=== PATIENT | female | born 1970 | race Two or more races ===

== ENCOUNTER → 2017-04-22 | Outpatient (CLI) | payer BC, OTHER ==
--- NOTE | 2017-04-22 23:36 | ECWPNPC ---
PATIENT NAME: KARSTEN WERNER : 1970 GENDER: FEMALE VISIT DATE: 04/22/2017 DISCHARGE DATE: 04/22/17 1431 VISIT LOCKED DATE TIME: PHYSICIAN: VY NOLAND RESOURCE: VY NOLAND HISTORY OF PRESENT ILLNESS NEW PATIENT CONSULT: WHEN DID YOUR PAIN FIRST START? . BRIEFLY DESCRIBE HOW YOUR PAIN STARTED? . HOW DOES YOUR PAIN CHANGE WITH TIME? . DOES YOUR PAIN AWAKEN YOU FROM SLEEP? . HOW MANY HOURS OF SLEEP DO YOU NORMALLY GET? . ANY DIAGNOSTIC TESTING? . FACILITY WHERE TESTS WERE DONE? ____. PAIN TREATMENT TREATMENT YES CANCER HAVE YOU EVER HAD ANY TYPE OF CANCER?NO NO. PAIN SCREENING: PATIENT HAS A COMPLAINT OF ACUTE OR CHRONIC PAIN :YES FALL RISK SCREENING: SCREENING :NO FALLS IN THE PAST YEAR OMRAN INVENTORY: QUESTIONNAIRE ASSESSEDYES SCORE VALUE CALCULATED YES SCORE: 8/63 DENIES SUICIDAL OR HOMICIDAL IDEATION TODAY'S VISIT: NOTES: NEW PATIENT REFERRAL TODAY FROM FRANCISCO PLUMMER MD , [place], [place], FOR CHRONIC JOINT PAIN. PER PROVIDERS NOTES HAS HISTORY OF RHEUMATOID ARTHRITIS AND LYME DISEASE. PER PATIENT HAS HX OF SJORGENS SYNDROME. IS STILL WAITING TO BE SEEN BY RHEUMATOLOGY IN [facility]. PREVIOUSLY HAS SEEN [facility] RHEUMATOLOGY . TRAMADOL AT 3 TABS PER DAY ALLOW HER TO FUNCTION. REPORTS ONSET OF SEVERE SYMPTOMS IN 2011 WITH NERVE PAIN, RANDOM JOINT SWELLING, SKIN ERUPTIONS, HIVES, EYE IRITATION, SHOULDER PAIN. CURRENTLY WORST AREAS IN UPPER LIMBS. HAS BEEN ON PREDNISONE AT 10 MG DAILY SEVERAL YEARS WHICH HELPS KEEP THINGS STABLE. HAS TRIAL WEAN OF PREDNISONE WITH MARKED RETURN OF SYMPTOMS. HAS BEEN TRIALED ON PLAQUENIL - BAD REACTION, AND HASN'T TRIALED METHOTREXATE YET SHE IS CONCERNED ABOUT POTENTIAL ADVERSE EFFECTS. HAS NOT BEEN CONSIDERED FOR ANY OTHER MEDICATIONS FOR SYMPTOM SUPPRESSION YET. . HAS HAD NO MAJOR FLARES IN LAST YEAR. HEAT CAN HELP WITH JOINT PAIN. . RATES PAIN TODAY 5/10. DESCRIBES PAIN CONSTANT AND TODAY EFFECTING JOINTS OF BOTH HANDS AND LEFT ARM. . CURRENT MEDICATIONS TAKING ARMOUR THYROID 30 MG TABLET TAKE ONE TABLET BY MOUTH EVERY DAY ORAL TAKING FLUCONAZOLE 100 MG TABLET TAKE 1 TABLET BY MOUTH TWICE A WEEK FOR 4 WEEKS ORAL TAKING LISINOPRIL 10 MG TABLET TAKE ONE TABLET BY MOUTH EVERY DAY ORAL TAKING PREDNISONE 10 MG TABLET TAKE ONE TABLET BY MOUTH EVERY DAY ORAL TAKING TRAMADOL HCL 50 MG TABLET (SCHEDULE IV DRUG) TAKE ONE TABLET BY MOUTH THREE TIMES A DAY NEEDED MAXIMUM DAILY DOSE 3 ORAL MEDICATION LIST REVIEWED AND RECONCILED WITH THE PATIENT PAST MEDICAL HISTORY AUTOIMMUNE DISORDER HTN VERTIGO 2007 BURSITIS 2010 HYPOTHYROID PAST HX LYME / LUPUS /RA / SJORGENS DRY EYES ALLERGIES GLUTEN / WHEAT: AUTOIMMUNE DX MILK: AUTOIMMUNE DX NAPROSYN: SKIN REACTION EXCEDRIN EXTRA STRENGTH: SKIN RXN PLAQUENIL: HIVES, WELTS NSAIDS: SKIN REACTION SURGICAL HISTORY HYSTERECTOMY 2017 APPENDECTOMY AGE 11 TUBAL LIGATION WISDOM TEETH REMOVAL FAMILY HISTORY FATHER: 51 YRS, DIAGNOSED WITH HEART DISEASE MOTHER: ALIVE, DIAGNOSED WITH HYPERTENSION, HEART DISEASE SOCIAL HISTORY GENERAL: TOBACCO USE ARE YOU A:NONSMOKER FORMER SMOKER. QUIT SMOKING YEARS AGO ALCOHOL SCREENING POINTS0 INTERPRETATIONNEGATIVE RECREATIONAL DRUG USE DRUG USE?NO DIET: FOLLOWS AUTOIMMUNE DIET. BUDDHIST [id number] CONFUCIANISM LANGUAGE LANGUAGES SPOKEN:GUATEMALAN LEARNING BARRIERS / SPECIAL NEEDS BARRIERS TO LEARNING?NO HEARING IMPAIRED?NO VISION IMPAIRED?NO COGNITIVELY IMPAIRED?NO READINESS TO LEARN?YES LEARNING PREFERENCES?NO EMOTIONAL BARRIERS?NO SPECIAL DEVICES?NO PAIN CLINIC PFS, CLERGY, PUBLIC HEALTH REFERRALS PFS REFERRAL NEEDED?NO CLERGY REFERRAL NEEDED?NO PUBLIC HEALTH REFERRAL NEEDED?NO WAS THE PROVIDER NOTIFIED OF ANY PERTINENT INFO?NO HAS THE PATIENT BEEN EDUCATED REGARDING HIS/HER PLAN OF CARE?YES HAS THE PATIENT BEEN EDUCATED REGARDING PAIN, THE RISK FOR PAIN, THE IMPORTANCE OF EFFECTIVE PAIN MANAGEMENT, AND THE PAIN ASSESSMENT PROCESS?YES PATIENT: ____. ADVANCE DIRECTIVES HEALTH CARE PROXY?NO WOULD YOU LIKE MORE INFORMATION?NO HOSPITALIZATION/MAJOR DIAGNOSTIC PROCEDURE VERTIGO 2007 HYSTERECTY 2017 2 CHILDREN APPENDECTOMY REVIEW OF SYSTEMS CONSTITUTIONAL: ANY CHANGE IN YOUR MEDICAL CONDITION? NO . CHILLS NO . FEVER NO . INFECTION: DO YOU HAVE NEW INFECTIONS? NO . DO YOU HAVE HISTORY OF MRSA? NO . MUSCULOSKELETAL: ANY NEW PATTERNS OF PAIN OR NUMBNESS? NO . SYTEMIC LUPUS NO . GASTROENTEROLOGY: GENERAL HX SJORGENS - DRY MOUTH. CONSTIPATION RESOLVING POST HYSTER . ANY NEW CHANGE IN BOWEL CONTROL? NO . BARRETTS ESOPHAGUS NO . CIRRHOSIS NO . HEPATITIS NO . LIVER FAILURE NO . ACID REFLUX NO . UNEXPLAINED WEIGHT LOSS NO . GENITOURINARY: ANY NEW CHANGE IN BLADDER CONTROL? NO . IS THERE A CHANCE YOU COULD BE ? NO . HEMATOLOGY/LYMPH: DO YOU TAKE ANY BLOOD THINNERS? (FOR EXAMPLE- COUMADIN, PLAVIX, AGGRENOX, PLATEL, PRADAXA, OR XARELTO) NO . WHEN WAS YOUR LAST DOSE? DATE: TIME: . LOW PLATELET COUNT NO . SICKLE CELL DISEASE NO . VON WILLIEBRANDS NO . FACTOR V LEIDEN NO . THALLASEMIA NO . ANEMIA NO . EASY BRUISING NO . NEUROLOGY: HAVE YOU FALLEN IN THE PAST 6 MONTHS? NO . ANY NEW EXTREMITY NUMBNESS OR WEAKNESS? NO . HEAD INJURY NO . DEMENTIA NO . CEREBRAL PALSY NO . MULTIPLE SCLEROSIS NO . DIZZINESS YES . HEADACHE MIGRAINES - FOLLOWS WITH BARBARA WILLIAMSON . STROKES NO . VERTIGO NO . CARDIOLOGY: DO YOU HAVE A PACEMAKER OR DEFIBRILLATOR? NO . ANGINA NO . HEART ATTACK NO . HEART SURGERY NO . CONGESTIVE HEART FAILURE/FLUID OVERLOAD NO . CHEST PAIN NO . HIGH BLOOD PRESSURE YES - NEW ONSET . IRREGULAR HEART BEAT NO . RESPIRATORY: HAVE YOU BEEN SICK IN THE PAST WEEK? NO . FEVER NO . FLU LIKE SYMPTOMS? NO . CPAP NO . BYPAP NO . ASTHMA NO . EMPHYSEMA NO . CHRONIC LUNG DISEASES NO . SHORTNESS OF BREATH ON EXERTION NO . DO YOU USE ANY TYPE OF TOBACCO (SMOKE, SMOKELESS, CHEW)? NO . COUGH NO . SNORING HAS BEEN TOLD SHE SNORES . INTEGUMENTARY: DO YOU HAVE ANY RASHES OR OPEN SORES? NO . ALLERGIC/IMMUNO: ARE YOU ALLERGIC TO SHELLFISH OR IV DYE? NO . ANY NEW ALLERGIES? NO . PSYCHIATRIC: DO YOU HAVE THOUGHTS OF HURTING YOURSELF OR SOMEONE ELSE? NO . ARE YOU ABUSED, NEGLECTED, OR IN AN UNSAFE ENVIRONMENT? NO . ENDOCRINOLOGY: ARE YOU DIABETIC? NO . THYROID DISORDER HYPOTHYROID - ON AURMORTHYROID . OTHER: DO YOU NEED ANY PRESCRIPTIONS? NO . IF YES, PLEASE LIST: ____ . ANY NEW PROBLEMS WITH YOUR MEDICATIONS? NO . WHEN DID YOU LAST EAT? ____ . WHEN DID YOU LAST DRINK? ____ . WHAT DID YOU LAST DRINK? ____ . NAME OF PERSON DRIVING YOU HOME? ____ . DO YOU HAVE ANY OTHER QUESTIONS OR CONCERNS NO . REVIEWED BY: PROVIDER: VY GANNP . VITAL SIGNS WT 111.4 LBS, HT 62 IN, BMI 20.37 INDEX, BP 133/81 MM HG, HR 65 /MIN, RR 16 /MIN, TEMP 98.8 F, OXYGEN SAT % 100%, NA INITIALS SC 13:23, REVIEWED BY: NL. EXAMINATION GENERAL EXAMINATION: GENERAL APPEARANCE:WELL DRESSED, THIN. PSYCHALERT , ORIENTED X 3 , APPROPRIATE MOOD AND AFFECT , SPEACH VERY QUIET. HEENT:NORMOCEPHALIC, NO LYMPHADENOPATHY, NO THYROMEGLY. SOME PERIORBITAL EDEMA. NO SCLERAL OR CONJUNTIVAL ERRYTHEMA. ORAL CAVITY:MOIST MUCOUS MEMBRANES, NO LESIONS. LUNGS:CLEAR TO AUSCULTATION BILATERALLY, NO WHEEZES, RALES OR RHONCHI. HEART:HEART RATE REGULAR, NO MURMURS, CLICK OR RUBS, NORMAL S1S2, NO CAROTID BRUITS. MUSCULOSKELETAL:MUSCLE STRENGTH TESTING 5/5 BILATERAL UPPER AND LOWER EXTREMITIES. FEW TRIGGER POINTS IDENTIFIED OVER LEFT DELTOID AND SCAPULA. MIN TENDERNESS WITH PALPATION OOVER CERVICAL , THORACIC OR LUMBAR SPINOUS PROCESSES. RISES EASILY TO STANDING POSITION, POSTURE UPRIGHT. GAIT NONANTALGIC.. EXTREMITIES:NO EDEMA. JOINTS:TENDERNESS AND EDEMA OVER THE RIGHT AND LEFT 3RD DIGIT AT THE MIP JOINTS. TENDER OVER 1 METACARPALS BILATERALLY. NO TMJ TENDERNESS OR CLICK. ABLE TO FULLY OPEN MOUTH. NEUROLOGIC EXAM:CN'S II-XII GROSSLY INTACT. EOMS INTACT WITHOUT NYSTAGMUS. SPEACH NON DYSARTHRIC. DTR'S 3+ BILATERAL UPPER EXTREMITIES, 4+ WITH CLONUS BILATER LOWER EXTREMITIES. NO SENSORY DEFICEIT. ASSESSMENTS RHEUMATOID ARTHRITIS INVOLVING MULTIPLE SITES WITH POSITIVE RHEUMATOID FACTOR - M05.79 (PRIMARY) ARTHRALGIA, UNSPECIFIED JOINT - M25.50 TREATMENT RHEUMATOID ARTHRITIS INVOLVING MULTIPLE SITES WITH POSITIVE RHEUMATOID FACTOR REFILL TRAMADOL HCL TABLET, 50 MG, 1 TAB, ORAL, Q 6-8 HOURS PRN PAIN MDD=3, 30 DAYS, 90, REFILLS 1 NOTES: CONTINUE CURRENT MEDS. WILL BE CALLING DR PLUMMER SHOULD THERE BE ANY FLARES WITH THE AUTO IMMUNE DISORDER WHICH NEED ATTENTION. WE CAN CONTINUE TO FOLLOW FOR PAIN AND WILL CONTINUE WITH TRAMADOL AT MAX 3 TABS PER DAY. CLINICAL NOTES: ISTOP REGISTRY REVIEWED AND DEMNOSTRATES COMPLLIANCE. , RISKS AND BENEFITS OF NARCOTIC/OPIOD MEDICATIONS WERE REVIEWED WITH PATIENT - THIS INCLUDES BUT IS NOT LIMITED TO RISK OF DEPENDANCE/DEVELOPMENT OF ADDICTION, MOOD DISTURBANCE AND DEPRESSION, OSTEOPOROSIS, HORMONAL AND LABIDAL CHANGES, RESPIRATORY DEPRESSION AND . PATIENT IS ADVISED NOT TO DRIVE WHILE ON THESE MEDICATIONS. PROCEDURE CODES FA211 ESTABILISHED PATIENT [facility] FACILITY CHARGE DISPOSITION & COMMUNICATION FOLLOW UP 6 WEEKS (REASON: JOINT PAIN) ELECTRONICALLY SIGNED BY LYLA MULLINS ON 04/22/2017 AT 04:51 PM EDT DISCLAIMER : THIS IS A VISIT SUMMARY EXTRACTED FROM THE [employer] CHART. IT IS NOT A COPY OF THE [employer] PROGRESS NOTE. MTDD
== END ==
LOC: M PAIN 13:20
PROVIDERS: ATTEND Nurse Practitioner Family
DX: M05.79 Rheumatoid arthritis with rheumatoid factor of multiple sites without organ or systems involvement (principal); M25.50 Pain in unspecified joint; G89.29 Other chronic pain; Z79.891 Long term (current) use of opiate analgesic; Z79.899 Other long term (current) drug therapy; Z87.891 Personal history of nicotine dependence

== ENCOUNTER → 2017-06-21 | Outpatient (CLI) | payer BC, OTHER ==
--- NOTE | 2017-07-07 23:26 | ECWPNPC ---
PATIENT NAME: KARSTEN WERNER : 1970 GENDER: FEMALE VISIT DATE: 06/21/2017 DISCHARGE DATE: 06/21/17 1032 VISIT LOCKED DATE TIME: PHYSICIAN: VY NOLAND RESOURCE: VY NOLAND REASON FOR APPOINTMENT 1. AUTOIMMMUNE ARTHRITIS HISTORY OF PRESENT ILLNESS HISTORY OF PRESENT ILLNESS: PAIN THE PATIENT DESCRIBES THE PAIN... FALL RISK SCREENING: SCREENING :NO FALLS IN THE PAST YEAR TODAY'S VISIT: NOTES: RATES PAIN TODAY 4-5/10. RECENTLY SAW RHEUMATOLY IN [place]. HAD INJECTION OF STEROIDS AND WAS STARTED ON METHOTREXATE AND IS NOW HAVING HIVES ON TRUNK. JOINTS AT SHOULDERS WRISTS, AND VORIOUS FINGER JOINTS ARE RED, SWOLLEN AND VARY SORE. PAINMED MAKES PAIN MAGABLE. IS ABLE TO SLEEP.. CURRENT MEDICATIONS TAKING ARMOUR THYROID 30 MG TABLET TAKE ONE TABLET BY MOUTH EVERY DAY ORAL TAKING LISINOPRIL 10 MG TABLET TAKE ONE TABLET BY MOUTH EVERY DAY ORAL TAKING TRAMADOL HCL 50 MG TABLET 1 TAB ORAL Q 6-8 HOURS PRN PAIN MDD=3 TAKING METHOTREXATE 2.5 MG TABLET 4 TABS ORALLY ONCE WEEKLY TAKING FOLIC ACID 1 MG TABLET 1 TABLET ORALLY ONCE A DAY NOT-TAKING PREDNISONE 10 MG TABLET TAKE ONE TABLET BY MOUTH EVERY DAY ORAL DISCONTINUED FLUCONAZOLE 100 MG TABLET TAKE 1 TABLET BY MOUTH TWICE A WEEK FOR 4 WEEKS ORAL MEDICATION LIST REVIEWED AND RECONCILED WITH THE PATIENT PAST MEDICAL HISTORY AUTOIMMUNE DISORDER HTN VERTIGO 2007 BURSITIS 2010 HYPOTHYROID PAST HX LYME / LUPUS /RA / SJORGENS DRY EYES ALLERGIES GLUTEN / WHEAT: AUTOIMMUNE DX MILK: AUTOIMMUNE DX NAPROSYN: SKIN REACTION EXCEDRIN EXTRA STRENGTH: SKIN RXN PLAQUENIL: HIVES, WELTS NSAIDS: SKIN REACTION REVIEW OF SYSTEMS REVIEWED BY: PROVIDER: VY NOLAND ICE CREAM VENDOR . CONSTITUTIONAL: ANY CHANGE IN YOUR MEDICAL CONDITION? YES, STARTED TAKING METHOTREXATE AND NOW HAS HIVES AROUND HER TRUNK, IS GOING TO CALL DOCTOR WHO PERSCRIBED IT. . CHILLS NO . FEVER NO . INFECTION: DO YOU HAVE NEW INFECTIONS? NO . DO YOU HAVE HISTORY OF MRSA? NO . MUSCULOSKELETAL: ANY NEW PATTERNS OF PAIN OR NUMBNESS? NO . GASTROENTEROLOGY: ANY NEW CHANGE IN BOWEL CONTROL? NO . GENITOURINARY: ANY NEW CHANGE IN BLADDER CONTROL? NO . IS THERE A CHANCE YOU COULD BE ? NO . HEMATOLOGY/LYMPH: DO YOU TAKE ANY BLOOD THINNERS? (FOR EXAMPLE- COUMADIN, PLAVIX, AGGRENOX, PLATEL, PRADAXA, OR XARELTO) NO . WHEN WAS YOUR LAST DOSE? DATE: TIME: . NEUROLOGY: HAVE YOU FALLEN IN THE PAST 6 MONTHS? NO . ANY NEW EXTREMITY NUMBNESS OR WEAKNESS? NO . CARDIOLOGY: DO YOU HAVE A PACEMAKER OR DEFIBRILLATOR? NO . RESPIRATORY: HAVE YOU BEEN SICK IN THE PAST WEEK? NO . FEVER NO . FLU LIKE SYMPTOMS? NO . COUGH NO . INTEGUMENTARY: DO YOU HAVE ANY RASHES OR OPEN SORES? NO . ALLERGIC/IMMUNO: ARE YOU ALLERGIC TO SHELLFISH OR IV DYE? NO . ANY NEW ALLERGIES? NO . PSYCHIATRIC: DO YOU HAVE THOUGHTS OF HURTING YOURSELF OR SOMEONE ELSE? NO . ARE YOU ABUSED, NEGLECTED, OR IN AN UNSAFE ENVIRONMENT? NO . ENDOCRINOLOGY: ARE YOU DIABETIC? NO . OTHER: DO YOU NEED ANY PRESCRIPTIONS? YES . IF YES, PLEASE LIST: TRAMADOL . ANY NEW PROBLEMS WITH YOUR MEDICATIONS? NO . WHEN DID YOU LAST EAT? ____ . WHEN DID YOU LAST DRINK? ____ . WHAT DID YOU LAST DRINK? ____ . NAME OF PERSON DRIVING YOU HOME? ____ . DO YOU HAVE ANY OTHER QUESTIONS OR CONCERNS NO . VITAL SIGNS WT 112.4 LBS, HT 62 IN, BMI 20.56 INDEX, BP 135/93 MM HG, HR 72 /MIN, RR 16 /MIN, TEMP 98.5 F, OXYGEN SAT % 100%, NA INITIALS AW 0957, REVIEWED BY: YAMILET. EXAMINATION GENERAL EXAMINATION: GENERAL APPEARANCE:WELL DRESSED, THIN. PSYCHALERT , ORIENTED X 3 , APPROPRIATE MOOD AND AFFECT , SPEACH VERY QUIET. LUNGS:CLEAR TO AUSCULTATION BILATERALLY, NO WHEEZES, RALES OR RHONCHI. HEART:HEART RATE REGULAR, NO MURMURS, CLICK OR RUBS, NORMAL S1S2. MUSCULOSKELETAL:MUSCLE STRENGTH TESTING 5/5 BILATERAL UPPER AND LOWER EXTREMITIES. FEW TRIGGER POINTS IDENTIFIED OVER LEFT DELTOID AND SCAPULA. MIN TENDERNESS WITH PALPATION OOVER CERVICAL , THORACIC OR LUMBAR SPINOUS PROCESSES. RISES EASILY TO STANDING POSITION, POSTURE UPRIGHT. GAIT NONANTALGIC.. EXTREMITIES:NO EDEMA. JOINTS:TENDERNESS AND EDEMA OVER THE RIGHT AND LEFT 3RD DIGIT AT THE MIP JOINTS. TENDER OVER 1 METACARPALS BILATERALLY. NO TMJ TENDERNESS OR CLICK. ABLE TO FULLY OPEN MOUTH. SKIN:URTICARIA NOTED OVER TRUCK. NEUROLOGIC EXAM:CN'S II-XII GROSSLY INTACT. EOMS INTACT WITHOUT NYSTAGMUS.. ASSESSMENTS RHEUMATOID ARTHRITIS INVOLVING MULTIPLE SITES WITH POSITIVE RHEUMATOID FACTOR - M05.79 (PRIMARY) ARTHRALGIA, UNSPECIFIED JOINT - M25.50 TREATMENT RHEUMATOID ARTHRITIS INVOLVING MULTIPLE SITES WITH POSITIVE RHEUMATOID FACTOR REFILL TRAMADOL HCL TABLET, 50 MG, 1 TAB, ORAL, Q 6-8 HOURS PRN PAIN MDD=3, 30 DAYS, 90, REFILLS 3 NOTES: CAN TAKE TOTAL OF 3000 MG TYLENOL PER 24 HOURS.FOLLOW UP WITH RHEUMATOLOGY. PROCEDURE CODES FA211 ESTABILISHED PATIENT [facility] CHARGE DISPOSITION & COMMUNICATION FOLLOW UP 2 1/2- 3 MONTH (REASON: JOINT PAIN) ELECTRONICALLY SIGNED BY LYLA MULLINS ON 07/07/2017 AT 01:46 PM EDT DISCLAIMER : THIS IS A VISIT SUMMARY EXTRACTED FROM THE [employer] CHART. IT IS NOT A COPY OF THE [employer] PROGRESS NOTE. JESSICA
== END ==
LOC: M PAIN 09:30
PROVIDERS: ATTEND Nurse Practitioner Family
DX: M05.79 Rheumatoid arthritis with rheumatoid factor of multiple sites without organ or systems involvement (principal); M25.50 Pain in unspecified joint; I10 Essential (primary) hypertension; E03.9 Hypothyroidism, unspecified; Z79.891 Long term (current) use of opiate analgesic; Z79.899 Other long term (current) drug therapy; Z86.2 Personal history of diseases of the blood and blood-forming organs and certain disorders involving the immune mechanism; Z86.69 Personal history of other diseases of the nervous system and sense organs; Z91.011 Allergy to milk products; Z88.6 Allergy status to analgesic agent; Z88.8 Allergy status to other drugs, medicaments and biological substances

== ENCOUNTER → 2017-11-21 | Outpatient (CLI) | payer BC, OTHER | LOC: M PAIN 09:45 | DX: G89.29 Other chronic pain (principal); M05.79 Rheumatoid arthritis with rheumatoid factor of multiple sites without organ or systems involvement; M25.50 Pain in unspecified joint; I10 Essential (primary) hypertension; E03.9 Hypothyroidism, unspecified; H04.123 Dry eye syndrome of bilateral lacrimal glands; Z87.891 Personal history of nicotine dependence; Z91.018 Allergy to other foods; Z91.011 Allergy to milk products; Z88.6 Allergy status to analgesic agent; Z88.1 Allergy status to other antibiotic agents; Z88.8 Allergy status to other drugs, medicaments and biological substances | CPT/HCPCS: G0463 ==

== ENCOUNTER → 2018-02-19 | Outpatient (CLI) | payer OTHER | LOC: M PAIN 08:30 | DX: M05.79 Rheumatoid arthritis with rheumatoid factor of multiple sites without organ or systems involvement (principal); M79.601 Pain in right arm; M79.602 Pain in left arm; M25.542 Pain in joints of left hand; M25.541 Pain in joints of right hand; I10 Essential (primary) hypertension; M35.9 Systemic involvement of connective tissue, unspecified; E03.9 Hypothyroidism, unspecified; Z79.899 Other long term (current) drug therapy; E88.1 Lipodystrophy, not elsewhere classified; Z88.8 Allergy status to other drugs, medicaments and biological substances; Z91.018 Allergy to other foods; Z91.011 Allergy to milk products; Z87.891 Personal history of nicotine dependence; Z86.69 Personal history of other diseases of the nervous system and sense organs | CPT/HCPCS: G0463 ==

== ENCOUNTER 2019-11-24 10:37 | Emergency (ER) | payer BC, OTHER ==
[~2019-11-24] VITALS: Ht 160 cm; Wt 50.0 kg
[2019-11-24] MEDS ORDERED: RIZA10TA58 (11:32)
[2019-11-24] MEDS ORDERED: NP T30TA (11:32)
[2019-11-24] MEDS ORDERED: LISI10TA4 (11:32)
[2019-11-24] MEDS ORDERED: CYCL5TAB (11:32)
[2019-11-24] MEDS ORDERED: PRED1TABL (11:32)
--- NOTE | 2019-11-24 12:43 | REP ---
PA and lateral chest: There are no comparisons. The lung collier are clear. The cardiac size is normal. The radha, mediastinum, and skeletal structures are unremarkable. There is a tiny metallic density superimposed over the left hemithorax inferiorly/anteriorly, possibly a foreign body. Impression: Possible tiny foreign body on the left, otherwise, negative PA and lateral chest. Electronically Signed by Tom Mai MD 11/24/2019 12:35 P
[2019-11-24 13:02] LABS: BASO % 0.6 % (0.0-1.0); EOS # 0.1 10^3/uL (0.0-0.5); EOS % 1.3 % (0.0-3.0); HEMOGLOBIN 11.2 g/dl (12.0-15.5); LYMPH # 0.9 10^3/uL (1.5-5.0); MEAN CORPUSCULAR HEMOGLOBIN 26.4 pg (27.0-33.0); MEAN CORPUSCULAR HGB CONC 31.1 g/dl (32.0-36.5); MEAN CORPUSCULAR VOLUME 84.7 fl (80.0-96.0); MONO # 0.5 10^3/uL (0.0-0.8); NEUTROPHILS # 4.7 10^3/uL (1.5-8.5); NEUTROPHILS % 75.8 % (36.0-66.0); PLATELET COUNT, AUTOMATED 354 10^3/uL (150-450); RED BLOOD COUNT 4.25 10^6/uL (4.00-5.40); WHITE BLOOD COUNT 6.2 10^3/uL (4.0-10.0)
[2019-11-24 13:30] LABS: ALBUMIN 2.7 GM/DL (3.2-5.2); ALT/SGPT 15 U/L (12-78); BILIRUBIN,DIRECT 0.1 MG/DL (0.0-0.2); BILIRUBIN,TOTAL 0.2 MG/DL (0.2-1.0); BLOOD UREA NITROGEN 13 MG/DL (7-18); CALCIUM LEVEL 8.8 MG/DL (8.5-10.1); CARBON DIOXIDE LEVEL 27 MEQ/L (21-32); CHLORIDE LEVEL 106 MEQ/L (98-107); CK-MB VALUE MASS < 1.0 NG/ML (<3.6); CPK CREATINE PHOSPHOKINASE 40 U/L (26-192); CREATININE FOR GFR 0.45 MG/DL (0.55-1.30); FREE T4 1.88 NG/DL (0.76-1.46); GLOMERULAR FILTRATION RATE > 60.0 (>51); GLUCOSE, FASTING 98 MG/DL (70-100); LIPASE 54 U/L (73-393); POTASSIUM SERUM 4.2 MEQ/L (3.5-5.1); SODIUM LEVEL 140 MEQ/L (136-145); THYROID STIMULATING HORMONE < 0.005 uIU/ML (0.358-3.740); TOTAL PROTEIN 6.2 GM/DL (6.4-8.2); TROPONIN I < 0.02 NG/ML (< 0.10)
[2019-11-24] MEDS ORDERED: ACETAMINOPHEN TAB 650MG DOSE (2X325MG) PO ONE (14:00)
[2019-11-24 15:39] LABS: C REACTIVE PROTEIN QUANTITATIV 2.03 MG/DL (0.00-0.30)
[2019-11-24 16:03] LABS: CK-MB VALUE MASS < 1.0 NG/ML (<3.6); CPK CREATINE PHOSPHOKINASE 29 U/L (26-192); MB/CK RELATIVE INDEX 3.45 (< OR =4); TROPONIN I 0.02 NG/ML (< 0.10)
[2019-11-24] MEDS ORDERED: PROT1TAB2 PO (16:41)
[2019-11-24 16:54] VITALS: BP 120/80
--- NOTE | 2019-11-24 20:55 | ECGEPIP ---
[facility] - ED Test Date: 2019-11-24 Pat Name: KARSTEN WERNER Department: Room: - Gender: Female [employer] Director: [facility] : 1970 Requested By: Roney Clarke Order Number: [id number] Reading MD: Roney Alston Measurements Intervals [place] Rate: 92 P: 68 OK: 128 QRS: 21 QRSD: 87 T: 41 QT: 338 QTc: 418 Interpretive Statements SINUS RHYTHM BASELINE ARTIFACT AFFECTS INTERPRETATION NO PRIORS FOR COMPARISON Electronically Signed on 11-24-2019 20:54:56 EST by Roney Alston
--- NOTE | 2019-11-24 21:05 | ECGEPIP ---
[facility] - ED Test Date: 2019-11-24 Pat Name: KARSTEN WERNER Department: Room: - Gender: Female Manager Utility: [employer] : 1970 Requested By: Roney Clarke Order Number: [id number] Reading MD: Roney Alston Measurements Intervals [place] Rate: 83 P: 65 MO: 134 QRS: 17 QRSD: 85 T: 26 QT: 368 QTc: 433 Interpretive Statements SINUS RHYTHM SIMILAR TO PRIOR ON SAME DATE Electronically Signed on 11-24-2019 21:04:53 EST by Roney Alston
--- NOTE | 2019-11-25 14:40 | ED PDOC ---
Post-Departure Follow-Up dr tesha crockett faxed formalreport of cxr for fu Ranjan Mason MD Nov 25, 2019 14:40
[2019-11-26] MEDS ORDERED: THYR15TA PO (12:54)
== END 2019-11-24 17:10 | disposition home or self-care (01) ==
LOC: M ED 10:37
DX: K29.60 Other gastritis without bleeding (principal); E05.80 Other thyrotoxicosis without thyrotoxic crisis or storm; I10 Essential (primary) hypertension; Z79.899 Other long term (current) drug therapy; Z88.8 Allergy status to other drugs, medicaments and biological substances

== ENCOUNTER → 2019-11-26 | Outpatient (CLI) | payer BC, OTHER ==
[~2019-11-26] MED LIST: CYCL5TAB; LISI10TA4; NP T30TA; PRED1TABL; PROT1TAB2 PO; RIZA10TA58; THYR15TA PO
[2019-11-26 10:28] LABS: THYROID STIMULATING HORMONE < 0.005 uIU/ML (0.358-3.740)
== END ==
LOC: M LAB 09:06
PROVIDERS: ATTEND Emergency Medicine
DX: E05.90 Thyrotoxicosis, unspecified without thyrotoxic crisis or storm (principal)

== ENCOUNTER → 2023-12-11 | Outpatient (CLI) | payer BC, OTHER ==
[~2023-12-11] MED LIST changes: +LISI10TA22; -LISI10TA4
== END ==
LOC: M RAD 14:48
PROVIDERS: ATTEND Nurse Practitioner Family
DX: E05.00 Thyrotoxicosis with diffuse goiter without thyrotoxic crisis or storm (principal)
CPT/HCPCS: 78012; A9516